=== PATIENT | female | born 1985 | race Caucasian/White ===

== ENCOUNTER 2025-06-01 04:18 | Inpatient (IN) ==
[2025-06-01] MEDS ORDERED: LIDOCAINE 1% LOCAL 20 ML VIAL INFIL PRN (04:31)
[2025-06-01] MEDS ORDERED: LACTATED RINGER'S 1,000 ML IV PRN (04:31)
[2025-06-01] MEDS ORDERED: OXYTOCIN 30 UNITS/NSS 30 UNITS/500 ML BAG IV PRN ×2 (04:31→06:13)
[2025-06-01] MEDS: PENICILLIN GK 6 MU in DEXTROSE 5% 250 ML IV STA (05:00)
[2025-06-01 05:03] LABS: Hematocrit (blood only) 25.0 % (37.0-47.0); Hemoglobin 8.0 g/dl (12.0-16.0); Mean Corpuscular Hemoglobin 27.1 pg (25.0-34.0); Mean Corpuscular Volume 84.7 fL (80.0-100.0); Platelet Count 267 K/uL (130-400); RDW Standard Deviation 54.3 fL (36.4-46.3); Red Blood Count 2.95 M/uL (4.20-5.40); White Blood Count 12.72 K/ul (4.8-10.8)
--- NOTE | 2025-06-01 05:28 | Anesthesiology Consultation ---
Date of Service June 01, 2025 Assessment & Plan (1) Encounter for pre-operative examination: Chart Review Chart Review: Patient NOT seen in Pre Admission Testing and Acceptable Risk for Labor Epidural Consults Requested none History Height/Weight Height: 5 ft 7 in Weight: 100.516 kg Allergies Allergy/AdvReac Type Severity Reaction Status Date / Time No Known Allergies Allergy Verified 05/24/25 13:39 Medications Home Medications Medication Instructions Recorded Confirmed Last Taken [id number]-[id number]-[id number] 1 mg PO DAILY 11/08/24 06/01/25 05/31/25 [ Plus] duloxetine 60 mg capsule,delayed 90 mg PO DAILY 05/24/25 06/01/25 05/31/25 release Past Medical History Medical History (Updated 06/01/25 @ 05:27 by Laz Sprague MD) Encounter for pre-operative examination RLS (restless legs syndrome) Varicella vaccination Past Family History Family History Mother Kidney disease Denies family history of Ovarian cancer Breast cancer Colorectal cancer Past Surgical History Surgical History S/P wisdom tooth extraction S/P tonsillectomy Past Anesthesia History No Hx of Anesthesia Complications and No Family Hx of Anesthesia Complications Social History Smoking Status: Current every day smoker Smoking cigarettes per day: Daily vaping Do You Dip or Chew Tobacco: No Hx Alcohol Use: No Hx Substance Use: No substance use type: does not use Physical Exam Vital Signs Last Vital Signs Temp 36.4 C L 06/01/25 04:44 Pulse 100 H 06/01/25 04:52 Resp 20 06/01/25 04:44 BP 139/91 06/01/25 04:52 Testing Laboratory Results 06/01/25 04:49
[2025-06-01] MEDS: OXYTOCIN 10 UNITS/ML VIAL IM ONE (05:30)
--- NOTE | 2025-06-01 05:55 | Delivery Summary ---
Vaginal Delivery Summary Date of Service June 01, 2025 Vaginal Delivery Summary DIAGNOSES: 1. Mota intrauterine at 38w0d gestation. 2. Spontaneous onset of labor. 3. Group B Streptococcus Neg. PROCEDURE: Spontaneous vaginal delivery and repair of second degree laceration. SURGEON: Gabi Ruiz MD. TUB RIDER: None. ESTIMATED BLOOD LOSS: 177 mL. COMPLICATIONS: None. PLACENTA: Spontaneous and intact with a 3-vessel cord. DISPOSITION: Stable to labor and delivery. DESCRIPTION: The patient pushed in an uncontrolled manner and delivered the head in OA position. There was no nuchal cord. The left shoulder was anterior. The shoulders and body delivered without any difficulty, and the infant was placed on the maternal abdomen. It was vigorous and moving all extremities, and making respiratory efforts. The cord was doubly clamped by the MD and then cut by the FOB. The placenta delivered spontaneously and was noted to be intact and with a 3VC. The cervix, vagina and perineum were examined and were found to have a second degree lac which was infiltrated with 10cc plain 1% lidocaine then repaired using 3-0 vicryl suture. The fundus was firm and lochia minimal immediately after delivery. [facility] [place] Vaginal Delivery Codes: 88475 global code for the antepartum, delivery, and post-
[2025-06-01] MEDS ORDERED: HYDROCORTISONE ACETATE 25 MG SUPP PR PRN (06:13)
[2025-06-01] MEDS ORDERED: SODIUM CHLORIDE 0.9% 100 ML IV PRN (06:44)
[2025-06-01] MEDS: IBUPROFEN 600 MG TAB PO PRN (07:06)
[2025-06-01] MEDS: BENZOCAINE 20% SPRY 85 APPLN/85 GM CAN EXT PRN (07:06)
[2025-06-01] MEDS: ACETAMINOPHEN 325 MG TAB PO PRN (07:06)
[2025-06-01] MEDS: OXYTOCIN 10 UNITS/ML VIAL ONE (07:17)
[2025-06-01] MEDS ORDERED: PENICILLIN GK 3 MU in DEXTROSE 5% 100 ML IV PRN (07:31)
[2025-06-01] MEDS: PRENATAL VITAMIN 1 TAB PO SCH (08:10)
[2025-06-01] MEDS: DOCUSATE SODIUM 100 MG CAP PO SCH (08:10)
[2025-06-01] MEDS: DIPHTHER/TETAN/PERTUS Vaccine (Tdap, Adol/Adult) 0.5mL IM ONE (09:17)
--- NOTE | 2025-06-02 06:26 | Obstetrical Progress Note ---
Date of Service June 02, 2025 Assessment & Plan (1) care and examination: Plan: yo GP post- day-- s/p Fells well today. Continue post- care Encourage ambulation and or bottle feeding Pain controlled with Ibuprofen, Tylenol, Percocet Vital Signs and Hgb stable ?Discharge home today, follow up with OB provider in 6 weeks. Admission and Anticipated Discharge Date Admission Date: June 01, 2025 Supervising Physician Co-Signing Physician Notes Resident Physician Supervision Note: I interviewed and examined the patient. Discussed with Dr. Bourgeois and agree with findings and plan as documented in the note. Any exceptions or clarifications ar e listed here: [ ] Documented By: Gabi Ruiz MD, FACOG, MSCP Subjective yo GP post- day- s/p Ambulation: Ambulating normally Voiding: No voiding problems Passing Gas:: Yes Diet Tolerance:: regular diet Lochia:: Small Feeding Type:: breast or bottle feeding Current Pain Level: /10 controlled with Tylenol, Ibuprofen, Percocet, Toradol? Resting comfortably this AM in NAD. Denies MART, CP, SOB, N/V/D, LE pain/swelling. Physical Exam Physical Exam: General: patient resting comfortably, NAD, non-toxic in appearance, answers questions appropriately Skin: warm, dry, intact Heart: S1/S2 heard, regular, no m/r/g Lungs: equal air entry bilaterally, no rales/rhonchi/wheezes Abd: Normoactive BS, soft, NT/ND, uterine fundus firm at umbilicus Ext: warm, no clubbing/cyanosis or edema, Hayley's neg Neuro: nonfocal, patient AAOx4, speech intact, no facial droop, moving all extremities on command Results & Data Vital Signs (Past 12 Hours) Vital Signs Temp Pulse Pulse Resp BP Pulse Ox O2 Del Method 06/02/25 04:30 36.4 C L 90 16 131/90 97 Room Air 06/01/25 23:36 36.3 C L 99 H 18 138/95 99 Room Air 06/01/25 21:22 92 H 06/01/25 20:03 36.5 C 109 H 18 134/85 99 Room Air
[2025-06-02 06:55] LABS: Hematocrit (blood only) 20.4 % (37.0-47.0); Hemoglobin 6.3 g/dl (12.0-16.0); Mean Corpuscular Hemoglobin 26.8 pg (25.0-34.0); Mean Corpuscular Volume 86.8 fL (80.0-100.0); Platelet Count 255 K/uL (130-400); RDW Standard Deviation 56.1 fL (36.4-46.3); Red Blood Count 2.35 M/uL (4.20-5.40); White Blood Count 10.07 K/ul (4.8-10.8)
[2025-06-02] MEDS ORDERED: SODIUM CHLORIDE 0.9% 100 ML IV PRN (07:37)
--- NOTE | 2025-06-02 07:56 | Obstetrical Progress Note ---
Date of Service June 02, 2025 Assessment & Plan (1) care and examination: Plan: 40yo post- day 1 s/p Fells well today. Continue post- care Encourage ambulation and /bottle feeding Pain controlled with Ibuprofen, Tylenol Vital Signs stable Hb 6.7, consented for blood transfusion, will transfuse and follow Hb MMR vaccine before d/c due to rubella non-immune status Hopeful discharge home today, follow up with OB provider in 6 weeks (2) Anemia: Plan: as above Admission and Anticipated Discharge Date Admission Date: June 01, 2025 Supervising Physician Co-Signing Physician Notes Resident Physician Supervision Note: I interviewed and examined the patient. Discussed with Dr. Bourgeois and agree with findings and plan as documented in the note. Any exceptions or clarifications are listed here: [ ] Documented By: Gabi Ruiz MD, FACOG, MSCP Subjective 40yo post- day 1 s/p Ambulation: Ambulating normally Voiding: No voiding problems Passing Gas:: Yes Diet Tolerance:: regular diet Lochia:: Small Feeding Type:: breast and bottle feeding Current Pain Level: 2/10 controlled with Tylenol, Ibuprofen Resting comfortably this AM in NAD. Hb was noted to be 6.3, pt is asx and agreeable to transfusion Denies MART, CP, SOB, N/V/D, LE pain/swelling. Physical Exam Physical Exam: General: patient resting comfortably, NAD, non-toxic in appearance, answers questions appropriately Skin: warm, dry, intact Heart: S1/S2 heard, regular, no m/r/g Lungs: equal air entry bilaterally, no rales/rhonchi/wheezes Abd: Normoactive BS, soft, NT/ND, uterine fundus firm below umbilicus Ext: warm, no clubbing/cyanosis or edema, Hayley's neg Neuro: nonfocal, patient AAOx4, speech intact, no facial droop, moving all extremities on command Results & Data Vital Signs (Past 12 Hours) Vital Signs Temp Pulse Pulse Resp BP Pulse Ox O2 Del Method 06/02/25 07:25 36.2 C L 87 18 137/91 100 Room Air 06/02/25 04:30 36.4 C L 90 16 131/90 97 Room Air 06/01/25 23:36 36.3 C L 99 H 18 138/95 99 Room Air 06/01/25 21:22 92 H 06/01/25 20:03 36.5 C 109 H 18 134/85 99 Room Air Resident Activity Tracking Resident Involvement: Resident Care Provided Care Provided: OB Delivery
[2025-06-02 17:05] VITALS: BP 138/93; PULSE 98; RESP 20; TEMP 98.6; O2SAT 99
[2025-06-02 19:28] LABS: Hematocrit (blood only) 24.1 % (37.0-47.0); Hemoglobin 8.0 g/dl (12.0-16.0); Mean Corpuscular Hemoglobin 28.9 pg (25.0-34.0); Mean Corpuscular Volume 87.0 fL (80.0-100.0); Platelet Count 274 K/uL (130-400); RDW Standard Deviation 53.1 fL (36.4-46.3); Red Blood Count 2.77 M/uL (4.20-5.40); White Blood Count 11.06 K/ul (4.8-10.8)
== END 2025-06-02 21:10 | disposition home or self-care (01) | DRG 807 ==
LOC: OPB 04:18 → 4S1 04:25 → 4E2 08:53